=== PATIENT | female | born 1945 | race Caucasian/White ===

== ENCOUNTER 2017-06-15 20:05 | Emergency (ER) | payer OTHER ==
[~2017-06-15] VITALS: Ht 147.3 cm; Wt 86.2 kg
[2017-06-15] MEDS ORDERED: HUMALOG100 UNIT/1 SQ (20:39)
[2017-06-15] MEDS ORDERED: LEVEMIR FL100 UNIT/1 SQ (20:39)
== END 2017-06-15 20:43 | disposition home or self-care (01) ==
LOC: ED 20:05
DX: E11.65 Type 2 diabetes mellitus with hyperglycemia (principal); Z76.0 Encounter for issue of repeat prescription; Z79.4 Long term (current) use of insulin